=== PATIENT | female | born 1985 ===

== ENCOUNTER 2016-06-30 12:40 | Emergency (ER) | payer MEDICAID ==
[2016-06-30 13:25] VITALS: BMI 29.0
[2016-06-30] MEDS ORDERED: Lactated Ringer's 1,000 ML IV SCH (13:30)
--- NOTE | 2016-06-30 16:12 | US ---
Transvaginal pelvic ultrasound Indication: Please measure cervical length Comparison: 1st trimester ultrasound performed 01/16/16 Technique: Real-time ultrasound was performed through the pelvis. Findings: Cervix length measures approximately 3.4 cm. There is a single living fetus in cephalic presentation. Anterior placenta. There are no adnexal masses or cysts evident. Measurements and calculations: Fetus has a composite sonographic age of 30 weeks 1 day. This calculation is based on the biparietal diameter, head circumference, abdominal circumference, and femur length. Estimated heart rate 122 beats per min. Please note that the femur appears somewhat bowed on a single provided view. While this may be artifactual, dedicated outpatient anatomic ultrasound is recommended for further evaluation. Impression: Single living fetus with a composite sonographic age of 30 weeks 1 day. Estimated heart rate 122 beats per min. Cervix length measures approximately 3.4 cm. Please note that the femur appears somewhat bowed on a single provided view. While this may be artifactual, dedicated outpatient anatomic ultrasound is recommended for further evaluation.
== END 2016-06-30 16:50 | disposition home or self-care (01) ==
LOC: H.EROB2 12:40
DX: O47.03 False labor before 37 completed weeks of gestation, third trimester (principal); Z3A.30 30 weeks gestation of pregnancy

== ENCOUNTER 2016-07-09 11:50 | Emergency (ER) | payer MEDICAID ==
--- NOTE | 2016-07-09 12:28 | OBHP ---
Datetime: 06/30/2016 13:41 IP Adm Impression: , intrauterine IP Admit Plan: Observation/Evaluation Admit Comment, IP Provider: 30 yr at 30 wks GA by LMP presents to [facility] with complaint of con tractions q10 min since last night after she had sexual intercourse with her . Patient reports she has been feeling lower pelvic pressure and intermittent pain for 1 week. Denies RUQ pain, headac hes, swelling of hands/feet or visual changes. At her last clinic visit she was diagnosed with GDM cl ass A1. She denies any other complications with this . She walks 8hrs daily at work and does not have adequate fluid intake. Patient has no concerns or complaints at this time. course/ care: GDM class A1, Hep B neg, HIV neg, Gc/Ch neg/neg, RPR neg, GBS neg, Rubella Immune, PPD positive, CXR negative, Tdap given PMHx: none SurgHx: x 1 SocHx: denies smoking/Etoh/drugs Meds: PNV Allergies: NKDA PE: Cardiac: S1 S2 normal, no m/r/g Lungs: normal breathing pattern, CTABL Abd: BS+, gravid, soft, NT Ext: no edemal SVE: cervix closed Monitoring: FHR 140 bpm, moderate variability 6-25 bpm, accelerations 15 x 15, Category I A: 30 yr old F at 30 wks GA, not in active labor P: -Transvaginal US for cervical length measurement -IV , 1L LR bolus - monitoring Chanell Naylor M.D. PGY1 Addendum: I saw on exam patient presentation. Patient observed at OB ED. Cervical length within normal limit s. No evidence of labor at this time. Both maternal well-being and well-being reassurin g at this time. Patient discharged home with labor precautions. Patient will follow up in [facility] as already scheduled. [place] Pelvic Type - PN: Adequate Extremities - PN: Normal Abdomen - PN: Normal Back - PN: Normal Lungs - PN: Normal Heart - PN: Normal Thyroid - PN: Normal Neurologic - PN: Normal HEENT - PN: Normal General - PN: Normal Presentation-Admit: Vertex FHR - Baseline A Provider: 140 Contraction Comments Provider: occasional Gestation - Est Wks by US: 30.0 Pool Provider: Negative EGA AdmitDate IP: 30.0 Vital Signs Provider: Reviewed; Within Normal Limits IP Chief Complaint: Uterine contractions NICHD Variability Prov Fetus A: Moderate 6-25bpm NICHD Accel Fetus A IP Provider: 15X15 FHR Category Provider Fetus A: Category I NICHD Decel Fetus A IP Provider: None Dilatation, Provider: 0 Effacement, Provider: 0 Station, Provider: -4 Genitourinary Exam: Normal DTRs - PN: Normal
[2016-07-09 12:39] VITALS: BMI 28.7
--- NOTE | 2016-07-09 13:21 | OBADHP ---
Datetime: 07/09/2016 12:52 Admit Comment, IP Provider: 30 yr at 30 wks GA by LMP presents to [facility] with complints of hannah ght red blood noted after voiding when she wiped. Denies crmping, coitus since last visit ot [facility] 9 days go, pprom ctxs, RUQ pain, headaches, swelling of hands/feet or visual changes. At her last clini c visit she was diagnosed with GDM class A1. She states her glucose is well controlled by her diet. +UTI early in preg. She works at [employer] and walks throughout time at work. course/ care: GDM class A1, Hep B neg, HIV neg, Gc/Ch neg/neg, RPR neg, GBS neg, Rubella Immune, PPD positive, CXR negative, Tdap given PMHx: none SurgHx: x 1 SocHx: denies smoking/Etoh/drugs Meds: PNV Allergies: pcn rash I: 31.2wk UTI P: u/a, c_s obtain pren records Pelvic Type - PN: Adequate Extremities - PN: Normal Abdomen - PN: Normal Back - PN: Normal Lungs - PN: Normal Heart - PN: Normal Neurologic - PN: Normal HEENT - PN: Normal General - PN: Normal FHR - Baseline A Provider: 120 Membranes, Provider: Intact Contraction Comments Provider: irreg Comments, ACOG Physical Exam: SSE: cl/th; scant white d/c per cer os; blood in vag/per cer os. Vital Signs Provider: Within Normal Limits IP Chief Complaint: Vaginal bleeding NICHD Variability Prov Fetus A: Moderate 6-25bpm NICHD Accel Fetus A IP Provider: 15X15 FHR Category Provider Fetus A: Category I NICHD Decel Fetus A IP Provider: None Dilatation, Provider: 0 Effacement, Provider: 0 Station, Provider: -3 Genitourinary Exam: Normal EGA AdmitDate IP: 31.2 IP Adm Impression: , intrauterine IP Admit Plan: Observation/Evaluation Datetime: 06/30/2016 13:41 Thyroid - PN: Normal Presentation-Admit: Vertex Gestation - Est Wks by US: 30.0 Pool Provider: Negative DTRs - PN: Normal
[2016-07-09 14:27] LABS: RBC URINE 1 /hpf (0-3); URINE BILIRUBIN NEGATIVE (NEGATIVE); URINE BLOOD NEGATIVE (NEGATIVE); URINE COLOR YELLOW (YELLOW); URINE GLUCOSE (UA) NEG (Normal); URINE KETONE TRACE mg/dL (NEGATIVE); URINE LEUKOCYTE ESTERASE NEG Leu/uL (Negative); URINE PROTEIN NEGATIVE (NEGATIVE); URINE UROBILINOGEN 0.2-1.0 mg/dL (0.2-1.0); WBC URINE 2 /hpf (0-5)
--- NOTE | 2016-07-09 16:20 | US ---
PROCEDURE: OB Pelvic Ultrasound HISTORY: 31 weeks IUP vaginal bleeding - placenta location COMPARISON: None available. FINDINGS: UTERUS: Single Live intrauterine gestation in cephalic presentation. BPD equivalent to 30 wks/ 6 days gestatioin HC equivalent to 31 wks/ 1day gestation AC equivalent to 31 weeks and 2 days FL equivalent to 30 weeks and 2 days age (Ultrasound estimated): 30 weeks and 6 days Date of delivery (Ultrasound estimated) : 09/11/2016 Heart rate: 134 bpm. Amisha-gestational hemorrhage: None. Placenta is anterior. CERVIX: Long and closed. No cervical abnormality seen. RIGHT OVARY: Not visualized. LEFT OVARY: Not visualized. FREE FLUID: None. OTHER FINDINGS: None. IMPRESSION: Single intrauterine fetus in cephalic presentation with mean gestational age of 30 weeks and 6 days. [place] by ultrasound is 09/11/2016. Placenta is anterior in location. The cervix is closed.
--- NOTE | 2016-07-09 16:22 | US ---
PROCEDURE: Limited OB ultrasound for cervical length HISTORY: cervical length COMPARISON: None available. TECHNIQUE: Transvaginal pelvic ultrasound was performed. FINDINGS: The cervix is elongated and closed. Cervical length is 4.2 cm PIC IMPRESSION: Cervical length is 4.2 cm. Cervix is elongated and closed.
--- NOTE | 2016-07-09 17:41 | OBHP ---
Datetime: 07/09/2016 12:52 IP Adm Impression: , intrauterine IP Admit Plan: Observation/Evaluation Admit Comment, IP Provider: 30 yr EDc 09/08 by lmp _ 12wk usat 30 wks GA by LMP presents to [facility] with complints of bright red blood noted after voiding when she wiped. Denies crmping, coitus s dave last visit ot [facility] 9days go, pprom ctxs, RUQ pain, headaches, swelling of hands/feet or visual c hanges. At her last clinic visit she was diagnosed with GDM class A1. She states her glucose is well controlled by her diet. +UTI early in preg. course/ care: GDM class A1, Hep B neg, HIV neg, Gc/Ch neg/neg, RPR neg, GBS neg, Rubella Immune, PPD positive, CXR negative, Tdap given A+ PMHx: none SurgHx: x 1; D_C SocHx: denies smoking/Etoh/drugs. She works at [employer] and walks throughout time at work. Meds: PNV Allergies: pcn rash I: 31.2wk vaginal blood noted when wiped in br P: u/a, c_s obtain pren records addendum: obus anter plac- no evid of bleeding; s c/w dates CerL 4.2cm; u/a neg p: d/c home. pelvic rest. ptl precautions. return to hospital with recurrent bleeding f/u this wk in clinic. Pelvic Type - PN: Adequate Extremities - PN: Normal Abdomen - PN: Normal Back - PN: Normal Lungs - PN: Normal Heart - PN: Normal Neurologic - PN: Normal HEENT - PN: Normal General - PN: Normal FHR - Baseline A Provider: 120 Membranes, Provider: Intact Contraction Comments Provider: irreg Comments, ACOG Physical Exam: SSE: cl/th; scant white d/c per cer os; blood in vag/per cer os. EGA AdmitDate IP: 31.2 Vital Signs Provider: Within Normal Limits IP Chief Complaint: Vaginal bleeding NICHD Variability Prov Fetus A: Moderate 6-25bpm NICHD Accel Fetus A IP Provider: 15X15 FHR Category Provider Fetus A: Category I NICHD Decel Fetus A IP Provider: None Dilatation, Provider: 0 Effacement, Provider: 0 Station, Provider: -3 Genitourinary Exam: Normal
== END 2016-07-09 17:46 | disposition home or self-care (01) ==
LOC: H.EROB2 11:50 → H.L&D 12:17 → H.EROB2 17:46
DX: O26.853 Spotting complicating pregnancy, third trimester (principal); Z3A.31 31 weeks gestation of pregnancy; Z87.59 Personal history of other complications of pregnancy, childbirth and the puerperium

== ENCOUNTER 2016-08-03 04:34 | Inpatient (IN) | payer MEDICAID ==
[2016-08-03 05:34] VITALS: BMI 29.8
[2016-08-03] MEDS: Lactated Ringer's 2,000 ML IV SCH ×2 (05:45→06:57)
[2016-08-03 06:22] LABS: BASO % 0.2 % (0.0-2.0); EOS # 0.2 K/uL (0.0-0.7); EOS % 1.4 % (0.0-4.0); HEMATOCRIT 43.7 % (34.0-47.0); LYMPH # 2.1 K/uL (1.0-4.3); LYMPH % 14.3 % (20.0-40.0); MEAN CELL VOLUME 90.7 fl (81.0-99.0); MEAN CORPUSCULAR HEMOGLOBIN 29.9 pg (27.0-31.0); MEAN PLATELET VOLUME 10.9 fl (7.2-11.7); MONO # 1.1 K/uL (0.0-0.8); MONO % 7.8 % (0.0-10.0); NEUT # 11.1 K/uL (1.8-7.0); NEUT % 76.3 % (50.0-75.0); RED CELL DISTRIBUTION WIDTH 13.5 % (11.5-14.5); WHITE BLOOD COUNT 14.5 K/uL (4.8-10.8)
[2016-08-03 06:23] LABS: RBC URINE < 1 /hpf (0-3); URINE BACTERIA RARE (<OCC); URINE BILIRUBIN NEGATIVE (NEGATIVE); URINE BLOOD NEGATIVE (NEGATIVE); URINE COLOR YELLOW (YELLOW); URINE GLUCOSE (UA) NEG (Normal); URINE KETONE NEGATIVE (NEGATIVE); URINE LEUKOCYTE ESTERASE NEG Leu/uL (Negative); URINE PROTEIN NEGATIVE (NEGATIVE); URINE UROBILINOGEN 0.2-1.0 mg/dL (0.2-1.0); WBC URINE 2 /hpf (0-5)
--- NOTE | 2016-08-03 08:41 | OBHP ---
Datetime: 08/03/2016 05:00 IP Adm Impression: , intrauterine IP Chief Complaint Other: mucus plug fell IP Admit Plan: Observation/Evaluation Admit Comment, IP Provider: 30 y/o @ 34.6 weeks IUP presents for mucus plug falling. Patiet n reports mucus plug fell @ 04:00. The patient reports x1 episode of non-bloody/non-bilious vomit ye afternoon. The patient reports positive movement and taking PNVs. The patient has GDM A1, diet-controlled. The patient denies VB, LOF, CTXs, headaches, chest pain, SOB, dysuria, and fe vers. Clinic: [facility] allergies: penicillin PMH: none PSH: 2008, D_C 2012 OBHx: x 1 SAB @ 6 weeks 2012, 2012 for arrest of labor SOC: denies smoking, alcohol, and drugs ABO-Rh: A+ anitbody: neg HIV: neg RPR: neg HBsAg: neg rubella: immune GC/C: neg PPD: POSITIVE, CXR neg TDAP: 06/24/2016 O: CV: RRR Resp: CTA bl A: 30 y/o @ 34.6 weeks IUP presents for falling of mucus plug P: observe and evaluate continuous monitoring Klever Garibay MD Fire Control Officer Discussed plan of care of maternal medicine will start magnesium sulfate administer steroids if patient starts to make cervical changes patient to be delivered FHR - Baseline A Provider: 140 Membranes, Provider: Intact IP Hx Assessment: The History has been Reviewed and is Current EGA AdmitDate IP: 34.6 Vital Signs Provider: Reviewed; Within Normal Limits IP Chief Complaint: Other NICHD Variability Prov Fetus A: Moderate 6-25bpm NICHD Accel Fetus A IP Provider: 15X15 FHR Category Provider Fetus A: Category I NICHD Decel Fetus A IP Provider: None
[2016-08-03] MEDS ORDERED: Magnesium Sul 40GM/1L SW 40 GM/1,000 ML ML IV ONE ×2 (08:48→10:35)
[2016-08-03] MEDS ORDERED: Betamethasone Soluspan 30 mg/5mL Inj Susp IM ONE (08:50)
[2016-08-03] MEDS ORDERED: Magnesium Sulfate 4 gm/100 ml 4 GM/100 ML BAG IVPB ONE ×3 (09:03→09:33)
[2016-08-03] MEDS: Lactated Ringer's 1,000 ML IV SCH ×2 (09:15→22:15)
[2016-08-03] MEDS ORDERED: Nalbuphine 20 mg/ml Inj (1 ml) IVP PRN (11:44)
--- NOTE | 2016-08-03 12:26 | OBPN ---
Datetime: 08/03/2016 11:22 Membranes, Provider: Intact Contraction Comments Provider: q4-7min Presentation-Admit: Vertex IP Progress Note Comment: OBH Note s: pt c/o bilateral back pain- intermitttent feels like ctxs, rated 10/10; denies srom, vag bleedi ng..states no coitus for >1wk o: back: bilateral cva tenderness humc ob us on 07/09- s c/w dates ega by us 30.6kw by dates 31wk mfm us I: Threatened labor 34.6wks Prior CD Desired Sterility P: On MgSO4. Check Mg Level repeat us Pt advised that if she has ptd should be smaller and may be able to havd a . she state s she desires REPEAT CD. Pt also request sterilization. Informed consent obtained for repeat cd and btl NICHD Accel Fetus A IP Provider: 15X15 FHR Category Provider Fetus A: Category I NICHD Variability Prov Fetus A: Moderate 6-25bpm NICHD Decel Fetus A IP Provider: None Datetime: 08/03/2016 05:00 FHR - Baseline A Provider: 140 Vital Signs Provider: Reviewed; Within Normal Limits Datetime: 07/09/2016 12:52 Dilatation, Provider: 0 Effacement, Provider: 0 Station, Provider: -3 Datetime: 06/30/2016 13:41 Pool Provider: Negative Gestation - Est Wks by US: 30.0
[2016-08-03 12:54] LABS: URINE BACTERIA RARE (<OCC); URINE BILIRUBIN NEGATIVE (NEGATIVE); URINE BLOOD NEGATIVE (NEGATIVE); URINE COLOR YELLOW (YELLOW); URINE GLUCOSE (UA) NEG (Normal); URINE KETONE TRACE mg/dL (NEGATIVE); URINE LEUKOCYTE ESTERASE NEG Leu/uL (Negative); URINE PROTEIN NEGATIVE (NEGATIVE); URINE UROBILINOGEN 0.2-1.0 mg/dL (0.2-1.0); WBC URINE < 1 /hpf (0-5)
--- NOTE | 2016-08-03 16:02 | US ---
PROCEDURE: OB Pelvic Ultrasound HISTORY: PTL-efw, cerv length, jessica, plac locat, fetl presen COMPARISON: None available. FINDINGS: UTERUS: Gestational sac: Single intrauterine gestation in cephalic presentation. Placenta is anteriorly located free of the cervical os. The. BPD: 8.64 cm = 34 weeks 6 days HC: 31.24 cm = 35 weeks 0 days AC: 30.99 cm = 35 weeks 0 days FL: = 6.77 cm = 34 weeks 6 days Average ultrasound age estimated approximately 35 weeks 0 days Heart rate: 131 bpm. Amisha-gestational hemorrhage: None. Date of delivery (Ultrasound estimated) : 09/07/2016 JESSICA = 11.6 cm CERVIX: Cervix appears closed measuring approximately 4.2 cm the. No cervical abnormality seen. RIGHT OVARY: Not visualized LEFT OVARY: Not visualized the the FREE FLUID: None. OTHER FINDINGS: None. IMPRESSION: Living intrauterine gestation in cephalic presentation estimated age ultrasound age 35 weeks 0 days the +/-2 weeks 3 days. Heart rate document at 131 BPM Placenta is anteriorly located free of the cervical os. The cervix closed. JESSICA = 11.6 cm =
--- NOTE | 2016-08-03 22:32 | OBPN ---
Datetime: 08/03/2016 22:27 IP Progress Impression Other: Threatened PTL IP Progress Plan: Continue present management Contraction Comments Provider: irregular FHR - Baseline A Provider: 120 IP Progress Note Comment: s: states abd pain has subsided. denies srom. no c/o i: 34.6wk threatened ptl p: continu mgso4 for betameth#2 tomorrow. NICHD Accel Fetus A IP Provider: 15X15 FHR Category Provider Fetus A: Category I NICHD Variability Prov Fetus A: Moderate 6-25bpm Dilatation, Provider: 0 Effacement, Provider: 60 Station, Provider: -3 NICHD Decel Fetus A IP Provider: None
[2016-08-04] MEDS ORDERED: Magnesium Sul 40GM/1L SW 40 GM/1,000 ML ML IV ONE (06:57)
[2016-08-04] MEDS ORDERED: Betamethasone Soluspan 30 mg/5mL Inj Susp IM ONE (10:00)
--- NOTE | 2016-08-04 10:29 | OBPN ---
Datetime: 08/04/2016 10:03 IP Progress Impression: Reactive non-stress test IP Progress Plan: Discharge Pool Provider: Negative FHR - Baseline A Provider: 144 Gestation - Est Wks by US: 36.0 IP Progress Note Comment: Patient doing well denies any abdominal pain and uterine contractions vagi nal bleeding or leakage of fluid. The patient reports good movement. Vital signs stable afebrile Vaginal exam cervix long closed posterior Extremities no Homans Intrauterine at 36 weeks Patient received steroids We'll discharge home Patient to follow up with the [facility] this week labor precautions provided Vital Signs Provider: Reviewed NICHD Accel Fetus A IP Provider: 10X10 NICHD Variability Prov Fetus A: Moderate 6-25bpm NICHD Decel Fetus A IP Provider: None
== END 2016-08-04 11:15 | disposition home or self-care (01) | DRG 886 ==
LOC: H.EROB2 04:34 → H.L&D 08:47
PROVIDERS: ADMIT Obstetrics & Gynecology Gynecology; ATTEND Obstetrics & Gynecology Gynecology
PROC: 4A1HXCZ Monitoring of Products of Conception, Cardiac Rate, External Approach (ICD-10-PCS; principal; 2016-08-03)
DX: O26.93 Pregnancy related conditions, unspecified, third trimester (principal); O24.410 Gestational diabetes mellitus in pregnancy, diet controlled; Z3A.34 34 weeks gestation of pregnancy

== ENCOUNTER 2016-08-19 04:19 | Inpatient (IN) | payer MEDICAID ==
[2016-08-19 05:07] VITALS: BMI 27.3
[2016-08-19] MEDS: Lactated Ringer's 1,000 ML IV SCH ×3 (05:44→20:32)
--- NOTE | 2016-08-19 06:56 | OBHP ---
Datetime: 08/19/2016 05:30 IP Adm Impression: Term, intrauterine ; No Active Labor; Intact Membranes IP Admit Plan: Observation/Evaluation Admit Comment, IP Provider: 29yo IUP 37w c/o CTX pain since last nigth. No SROM. No VB +FM PNC: [facility] Dr Reed chart rev'd : GDMA1; GBS+; PPD+ POBGYNH: C/S x 1 [place] U; Spont Ab x 1 PMSH: C/S x 1 NKA PSoH: denies smoking ETOH drugs A: IUP at 37w C/S x 1 undocumented GBS+ PLAN: Terbutaline x 1 dose IVF Observe for labor progress Condition explained to pt and her . They understood. Pelvic Type - PN: Adequate Extremities - PN: Normal Abdomen - PN: Normal Back - PN: Normal Breast - PN: Not Done Lungs - PN: Normal Heart - PN: Normal Thyroid - PN: Normal Neurologic - PN: Normal HEENT - PN: Normal General - PN: Normal Presentation-Admit: Vertex FHR - Baseline A Provider: 140 Membranes, Provider: Intact Contraction Comments Provider: 2-3 Comments, ACOG Physical Exam: ROS: general: no fatigue/no weakness HEENT: slight MARTINEZ; no visual dist CV: No CP; No palpitations Resp: no SOB; no cough GI: No N/V/D : no F/U/D MS: no joint pain Pool Provider: Negative IP Hx Assessment: The History has been Reviewed and is Current Vital Signs Provider: Reviewed; Within Normal Limits NICHD Variability Prov Fetus A: Moderate 6-25bpm NICHD Accel Fetus A IP Provider: 10X10 FHR Category Provider Fetus A: Category I NICHD Decel Fetus A IP Provider: None Dilatation, Provider: 1 Effacement, Provider: long Station, Provider: high Genitourinary Exam: Normal DTRs - PN: Normal Datetime: 08/04/2016 10:03 Gestation - Est Wks by US: 36.0 Datetime: 08/03/2016 05:00 EGA AdmitDate IP: 34.6
[2016-08-19 07:23] LABS: HEMOGLOBIN 14.2 g/dL (12.0-16.0); MEAN CELL VOLUME 90.1 fl (81.0-99.0); MEAN CORPUSCULAR HEMOGLOBIN 30.6 pg (27.0-31.0); RBC 4.65 Mil/uL (3.80-5.20); RED CELL DISTRIBUTION WIDTH 13.8 % (11.5-14.5); WHITE BLOOD COUNT 11.4 K/uL (4.8-10.8)
[2016-08-19] MEDS ORDERED: Oxytocin 30 units/LR 500ML 30 U/500 ML BAG IV ONE (07:44)
[2016-08-19 07:48] VITALS: BP 98/58; PULSE 90; RESP 17; TEMP 98.4; O2SAT 100
--- NOTE | 2016-08-19 07:49 | OBADHP ---
Datetime: 08/19/2016 07:30 Admit Comment, IP Provider: 29yo IUP 37w c/o CTX pain since last nigth. No SROM. No VB +FM...Her CTX stopped but now notified nurses that pain is coming back PNC: [facility] Dr Reed chart rev'd : GDMA1; GBS+; PPD+ POBGYNH: C/S x 1 [place] U; Spont Ab x 1 PMSH: C/S x 1 NKA PSoH: denies smoking ETOH drugs A: IUP at 37w C/S x 1 undocumented GBS+ PLAN: S/P Terbutaline x 1 dose...will admit to L_D...Pt declines ...prep for C/S Condition explained to pt and her . They understood. Extremities - PN: Normal Lungs - PN: Normal Heart - PN: Normal Neurologic - PN: Normal General - PN: Normal FHR - Baseline A Provider: 140 Membranes, Provider: Intact Pool Provider: Negative IP Hx Assessment: The History has been Reviewed and is Current Vital Signs Provider: Reviewed; Within Normal Limits IP Chief Complaint: Uterine contractions NICHD Variability Prov Fetus A: Moderate 6-25bpm NICHD Accel Fetus A IP Provider: 15X15 FHR Category Provider Fetus A: Category I NICHD Decel Fetus A IP Provider: None Dilatation, Provider: 1-2 Effacement, Provider: 50 Station, Provider: -2 EGA AdmitDate IP: 37.1 IP Adm Impression: Term, intrauterine ; Active labor IP Admit Plan: Admit to unit; Initiate Section protocol Datetime: 08/19/2016 05:30 Pelvic Type - PN: Adequate Abdomen - PN: Normal Back - PN: Normal Breast - PN: Not Done Thyroid - PN: Normal HEENT - PN: Normal Presentation-Admit: Vertex Contraction Comments Provider: 2-3 Comments, ACOG Physical Exam: ROS: general: no fatigue/no weakness HEENT: slight MARTINEZ; no visual dist CV: No CP; No palpitations Resp: no SOB; no cough GI: No N/V/D : no F/U/D MS: no joint pain Genitourinary Exam: Normal DTRs - PN: Normal Datetime: 08/04/2016 10:03 Gestation - Est Wks by US: 36.0 Datetime: 08/03/2016 05:00 IP Chief Complaint Other: mucus plug fell
[2016-08-19] MEDS ORDERED: Clindamycin 600 MG in Sodium Chloride 0.9% 100 ML IVPB ONE (08:00)
[2016-08-19] MEDS ORDERED: Sodium Chloride 0.9% 10 ML IV ONE (08:23)
[2016-08-19] MEDS ORDERED: Morphine 1 mg/ml preservative-free Inj(Duramorph) ONE (08:23)
[2016-08-19] MEDS ORDERED: ePHEDrine 50 mg/ml Inj ONE (08:23)
[2016-08-19] MEDS ORDERED: Phenylephrine 10 mg/ml Inj ONE (08:23)
[2016-08-19] MEDS ORDERED: Lactated Ringer's 1,000 ML IV SCH ×2 (08:30→13:00)
[2016-08-19] MEDS ORDERED: DiphenhydrAMINE 50 mg/ml Inj IVP PRN (10:14)
[2016-08-19] MEDS ORDERED: Oxycodone/Acetaminophen 5/325 mg Tab PO PRN ×2 (10:14→15:35)
[2016-08-19 10:17] LABS: ABG ALLEN TEST YES; ARTERIAL BLOOD GAS HCO3 20.1 mmol/L (21-28); ARTERIAL BLOOD GAS HEMOGLOBIN 17.2 g/dL (11.7-17.4); ARTERIAL BLOOD GAS O2 CAPACITY 23.3 mL/dL (16-24); ARTERIAL BLOOD GAS O2 CONTENT 10.3 ML/dL (15-23); ARTERIAL BLOOD GAS O2 SAT 44.2 % (95-98); ARTERIAL BLOOD GAS PCO2 58 mm/Hg (35-45); ARTERIAL BLOOD GAS PH 7.24 (7.35-7.45); ARTERIAL BLOOD GAS PO2 19 mm/Hg (80-100); ARTERIAL BLOOD GAS TCO2 26.7 mmol/L (22-28)
[2016-08-19] MEDS ORDERED: Ketamine 50 mg/ml Inj (10 ml) ONE (11:33)
[2016-08-19] MEDS ORDERED: Midazolam 2 MG/2 ML VIAL ONE ×2 (11:33→11:41)
[2016-08-19] MEDS ORDERED: Propofol 10 mg/ml Inj (20 ML) ONE (12:19)
[2016-08-19 14:41] LABS: HEMOGLOBIN 11.6 g/dL (12.0-16.0)
[2016-08-19] MEDS: Clindamycin 600 MG in Sodium Chloride 0.9% 100 ML IVPB SCH (18:12)
--- NOTE | 2016-08-19 19:29 | OBDS ---
DELIVERY PERSONNEL Delivery Doctor: Eldon Hameed MD Container Crane Operator: Marivel Humphrey RN, Shanda Birmingham RN. Anesthesiologist: Arpita Brown MD Resident: Mary Reed MATERNAL INFORMATION Delivery Anesthesia: Spinal Medications in Delivery: pitocin 30units/500ml lr Estimated Blood Loss (ml): 900 Placenta Cultured: No Maternal Complications: None Provider Comments: Pre-Op Dx: 37.1wk , , Labor, Desired Sterilization Post-Op Dx: 37.1wk, , Labor, Desired Sterilization Procedure: Repeat with BTL Surgeon _ Fender Mechanic(s): Dr Dailey, 1st- Dr Reed, 2nd- Dr Jiang Anesthesia: Spinal, Dr Brown EBL: 900mL Findings: Male baby in vertex position, 3280g, 9/9, normal uterus with fallopian tubes/ovari es within normal limits. Complications: None Condition: Patient tolerated procedure well, transferred to L_D for recovery in stable condition. to [facility]. Patholog: RIGHT and LEFT fallopian tubes Mary Reed MDRES orossetos dictated 1412 LABOR SUMMARY EDC: 09/08/2016 00:00 No. Babies in Womb: 1 Attempted: No Labor Anesthesia: Epidural LABOR INFORMATION Reason for Induction: Not Applicable Oxytocin: N/A Group B Beta Strep: Positive Antibiotics # of Doses: 1 Antibiotics Time of Last Dose: 1000 Steroids Given: None Reason Steroids Not Administered: Not Applicable MEMBRANES Membranes Rupture Method: Artificial Rupture of Membranes: 08/19/2016 09:59 Length of Rupture (hrs): 0.00 Amniotic Fluid Color: Clear Amniotic Fluid Amount: Small Amniotic Fluid Odor: Normal STAGES OF LABOR Stage 3 hrs: 0 Stage 3 min: 1 CSECTION DELIVERY Primary Indication: Repeat Elective CSection Urgency: Non Elective CSection Incidence: Repeat Labor: Labor Elective: Nonelective CSection Incision: Lower Uterine Transverse; T Extension of Incision Uterine Closure: Double-layer closure BABY A INFORMATION Delivery Date/Time: 08/19/2016 09:59 Method of Delivery: Born in Route : No : N/A Forceps: N/A Vacuum Extraction: N/A Shoulder Dystocia : No SHOULDER DYSTOCIA BABY A Delivery Date/Time: 08/19/2016 09:59 PRESENTATION/POSITION BABY A Presentation: Cephalic Cephalic Presentation: Vertex Breech Presentation: N/A PLACENTA INFORMATION BABY A Placenta Delivery Time : 08/19/2016 10:00 Placenta Method of Delivery: Manual Removal Placenta Status: Delivered SCORES BABY A Heart Rate 1 min: >100 bpm Resp Effort 1 min: Good Cry Reflex Irritability 1 min: Cough or Sneeze or Pulls Away Muscle Tone 1 min: Active Motion Color 1 min: Body [place], Extremities Blue Resuscitation Effort 1 min: N/A SCORE 1 MIN: 9 Heart Rate 5 min: >100 bpm Resp Effort 5 min: Good Cry Reflex Irritability 5 min: Cough or Sneeze or Pulls Away Muscle Tone 5 min: Active Motion Color 5 min: Body [place], Extremities Blue Resuscitation Effort 5 min: N/A SCORE 5 MIN: 9 INFANT INFORMATION BABY A Gestational Age at Delivery: 37.1 Gestational Status: Term Infant Outcome : Liveborn Condition : Stable Sex: Male IDENTIFICATION/MEDS BABY A ID Band Number: [id number] ID Band Location: Right Leg; Right Arm WEIGHT/LENGTH BABY A Birthweight (gms): 3280 Infant Weight (lb): 7 Infant Weight (oz): 4 CORD INFORMATION BABY A No. Cord Vessels: 3 Nuchal Cord : N/A Nuchal Cord Other: N/A True Knot: N/A Cord pH Baby Arterial: 7.24 Cord Blood Taken: Yes Banking/Donate Info: N/A Infant Suction: Mouth; Nose
[2016-08-20] MEDS: Clindamycin 600 MG in Sodium Chloride 0.9% 100 ML IVPB SCH ×3 (01:14→16:26)
[2016-08-20] MEDS: Oxycodone/Acetaminophen 5/325 mg Tab PO PRN ×2 (04:24→22:49)
[2016-08-20] MEDS: Lactated Ringer's 1,000 ML IV SCH ×2 (05:43→12:30)
[2016-08-20 07:12] LABS: BASO % 0.2 % (0.0-2.0); EOS % 0.2 % (0.0-4.0); HEMOGLOBIN 9.1 g/dL (12.0-16.0); LYMPH # 1.3 K/uL (1.0-4.3); LYMPH % 8.6 % (20.0-40.0); MEAN CELL VOLUME 90.9 fl (81.0-99.0); MEAN CORPUSCULAR HEMOGLOBIN 30.3 pg (27.0-31.0); MEAN CORPUSCULAR HGB CONC 33.3 g/dL (33.0-37.0); MEAN PLATELET VOLUME 11.3 fl (7.2-11.7); MONO # 1.2 K/uL (0.0-0.8); MONO % 7.9 % (0.0-10.0); NEUT # 12.8 K/uL (1.8-7.0); NEUT % 83.1 % (50.0-75.0); PLATELET COUNT 113 K/uL (130-400); RED CELL DISTRIBUTION WIDTH 13.9 % (11.5-14.5); WHITE BLOOD COUNT 15.4 K/uL (4.8-10.8)
[2016-08-20 12:51] LABS: BANDS 1 % (0-2); BASOPHIL 1 % (0-2); LYMPHOCYTE 5 % (20-50); MONOCYTE 9 % (0-10); NEUTROPHIL 83 % (42-75); PLATELET ESTIMATE DECREASED (NORMAL); REACTIVE LYMPHOCYTES 1 % (0-0); TOTAL CELLS COUNTED 100
[2016-08-20 12:52] LABS: HYPOCHROMIC SLIGHT; LARGE PLATELETS PRESENT
--- NOTE | 2016-08-20 17:35 | OBPPN ---
Datetime: 08/20/2016 05:40 PP Nausea Prov: Denies PP Flatus Prov: No PP BM Prov: No PP Heart Prov: Normal PP Lungs Prov: Normal PP Abdomen/Uterus Prov: Normal PP Extremities Prov: Normal PP C/S Incision Prov: Normal PP Comments Phys Exam Prov: Incision: clean, dry and intact. no induration, erythema or fluctuation. PP Impression Prov: Normal progression PP Plan Prov: Continue present management PP Progress Note Prov: 30 y/o seen and examined at bedside. Pt reports right arm pain and ri ght hand since yesterday after . reports pain is worse(5/10) on 2nd, 3rd and 4th digits of r ight hand w/ mild swelling. has hx right elbow tendinitis for 2.5 yrs. reports pain improves with med s. denies passing gas per rectum and no BM. denies dyspnea, CP, palpitation, nausea, vomiting, fever , chills or calf pain. parents do not desire circumcision for infant. assessement: 30 yo s/p , POD#1 right hand pain plan: advance to regular diet as tolerated discontinue [place] percocet and ibuprofen for pain management Encourage and ambulatory Anticipate discharge on 08/22/16 Sultan Patel, PGY1 OB Hospitalist on-call - On rounds, I saw and examined Maria E...agree with PGY1 note...cont post op care. CAMINDO Vital Signs Provider PP: Reviewed Vital Signs Provider Details PP: slight tachycardia Datetime: 08/19/2016 17:02 PP Pain Prov: Abnormal PP CVA Tenderness Prov: Normal IP PP Procedures: None
[2016-08-21] MEDS: Oxycodone/Acetaminophen 5/325 mg Tab PO PRN (08:49)
--- NOTE | 2016-08-21 09:38 | OBPPN ---
Datetime: 08/21/2016 05:46 PP Pain Prov: Within normal limits PP Nausea Prov: Denies PP Flatus Prov: Yes PP BM Prov: Yes PP Heart Prov: Normal PP Lungs Prov: Normal PP Abdomen/Uterus Prov: Normal PP CVA Tenderness Prov: Normal PP Extremities Prov: Normal PP C/S Incision Prov: Normal PP Comments Phys Exam Prov: Incision: clean, dry and intact. no induration, erythema or fluctuation. Intact steri strips. no dehiscence. PP Impression Prov: Normal progression PP Plan Prov: Continue present management PP Progress Note Prov: 30 y/o seen and examined at bedside. pt reports no more right hand/ar m pain. Reports incision pain improves with meds. Ambulating well w/o dizziness. Tolerating PO diet well. Voiding freely w/ no blood noted. Reports passing gas per rectum and had + BM. denies dyspnea , CP, palpitation, nausea, vomiting, fever, chills or calf pain. assessement: 30 yo s/p , POD#2 plan: Continue with GDM specific diet as tolerated percocet and ibuprofen for pain management Encourage and ambulatory Anticipate discharge tomorrow Sultan Patel, PGY1 The patient was seen with the resident I agree with the notes Encourage ambulation, analgesia as needed, regular diet, anticipate discharge in a.m. Vital Signs Provider PP: Reviewed
--- NOTE | 2016-08-30 09:10 | OP ---
Date of Procedure: 08/19/16 Surgery Start: 9:28 Preoperative Diagnosis: 37.1 week in labor, hx of prior , elective sterilization Postoperative Diagnosis: Same Procedure was a repeat with an inverted T incision and bilateral tubal ligation. Surgeon: Myself Stripper And Printer: Dr. Mary Reed, [id number] Second Telephonic Nurse: Phoenix Jiang [id number] Anesthesiologist: Dr. Brown Anesthesia: Spinal anesthetic Estimated blood loss: 900ml Findings: Viable male infant in vertex presentation with clear amniotic fluid, weight of 3280 grams and Apgars of 9 and 9. Intraoperative findings also showed grossly normal bilateral tubes and ovaries. The uterus was otherwise grossly normal. Dense adhesions present. The bladder was densely adherent to the lower uterine segment of the uterus; adhesions of the rectus muscle to the underlying peritoneum and omentum. Complications: None Condition: Pt returned to the recovery room in a satisfactory condition, and the to the nursery. Pathology assessment: Right and left fallopian tubes. cord gas was also obtained which showed a pH of 7.24. FONTAINE CATHETER to drainage Indications: Pt is a 29-year-old female P:1011, who presented at 37 weeks with complaints of painful contractions. She presented on August 18, 2016. She was admitted for overnight observation and noted to be in active labor. Consent was obtained for a repeat with tubal sterilization. Pt declined . Pt understands that tubal sterilization is considered a permanent, irreversible procedure. Procedure: Pt was taken to the operating room where she underwent her spinal without complications. She was then placed into a supine position with a leftward tilt. She was prepped and draped in a routine sterile fashion. A pfannensteil skin incision was made at the site of the prior scar and this was carried down to the underlying rectus fascia, which was incised at the midline and extended bilaterally. The inferior rectus fascial edge was grasped with kochers and the underlying rectus muscles dissected off. The same procedure was performed along the superior rectus fascia edge. There were dense adhesions noted of the rectus muscle to the overlying rectus fascia, and adhesions of the rectus muscle to the underlying omentum was noted as well. The rectus muscle was grasped along the midline on either side with Allis clamps and the peritoneum was incised with the scalpel to enter the abdominal cavity. Upon entry, as stated, adhesions were noted of the omentum to the overling rectus muscle, and this required lysis of adhesions to gain entrance to the abdomen. The abdominal tissue was found to be nondistensible due to the scarring of prior , and the rectus muscle was incised to create more space in the abdomen. A portion of the omentum adherence was clamped with a [place] x2, incised and ligated. Upon entry into abdominopelvic cavity, the bladder was noted to be high up, and densely adherent to the lower uterine segment. A bladder flap was created using sharp dissection, however the bladder did remain adherent to the lower uterine segment. A transverse uterine incision was made superior to the area where the bladder was noted, and the uterine muscles were grasped on the other side with Allis clamps to enable further incision through the uterine muscle. The uterine cavity was then entered bluntly, and the incision extended laterally with use of the banded scissors. An attempt was made to deliver the fetus which was unsuccessful, so the uterine incision was changed to an inverted T incision. The baby was subsequently delivered. The mouth and nares were suctioned, the cord was clamped and cut, and the baby was handed to the waiting casino banker. Cord blood was collected. Placenta delivered spontaneously and intact. The uterus was exteriorized and cleared of all clots and debris. There was a small extension noted along the right lateral corner going inferiorly towards the cervix. This was repaired with 0 monocryl in a running lock fashion. Good hemostasis was obtained. The uterine incision was reapproximated. The innermost layer of the vertical portion of the uterine incision was reapproximated with 0 vicryl in a running locked fashion. The midportion of the thick myometrial layer was closed with a running stitch of 0- vicryl. The outer [id number] remaining portion of the myometrium and the uterine serosa were closed with a baseball stitch. The transverse uterine incision was reapproximated with 0 vicryl in a running locked fashion, followed by imbricated stitch of 0 monocryl. There was some bleeding noted along the transverse portion of the uterine incision, and this was managed with figure of 8 stitches to obtain good hemostasis. Attention was then turned to the fallopian tubes for ligation. The midampulary portion of the right fallopian tube was grasped with a rangel and ligated x2 with 2-0 plain. The tube incised and the tubal lumen cauterized with the Bovi. The suture came loose and required repeat ligation on either side of the cut tubes. There was some bleeded noted along peritoneum proximal to the distal portion of the cut tube, and this was well controlled with a running stitch of 3-0 chromic. Good hemostasis was obtained. Attention was then turned to the left fallopian tube which was grasped at the midambulary portion and ligated x2 with 2-0 plain. The tube was incised and the lumen cauterized for good hemostasis. The abdomen was irrigated and cleared of all clots and debris, and the uterine incision was reinspected to confirm good hemostasis. The uterus was returned to the abdomen, and the pelvic cavity was irrigated and cleared of all clots and debris. Because of the proximity of the bladder to the site of the uterine incision, it was decided to instill the bladder with sterile milk, and this was performed. It showed no leakage of fluid. The bladder was intact. The rectus fascia was reapproximated with 0 vicryl in a running fashion beginning in the left lateral corner to the midline and tied. The same procedure beginning in right lateral corner of rectus fascia was performed. The subcutaneous tissue was reapproximated with 2-0 plain in a simple interrupted fashion. The skin was reapproximated with a subcuticular of 3-0 vicryl. All sponge, lap and needle count were correct and patient returned to the recovery room in a satisfactory condition. Jerome Dailey MD
== END 2016-08-22 22:15 | disposition home or self-care (01) | DRG 371 ==
LOC: H.EROB2 04:19 → H.L&D 07:34 → H.OB/GYN 16:45
PROVIDERS: ADMIT Obstetrics & Gynecology; ATTEND Obstetrics & Gynecology
PROC: 10D00Z1 Extraction of Products of Conception, Low, Open Approach (ICD-10-PCS; principal; 2016-08-19)
PROC: 0UB70ZZ Excision of Bilateral Fallopian Tubes, Open Approach (ICD-10-PCS; 2016-08-19)
PROC: 4A1HXCZ Monitoring of Products of Conception, Cardiac Rate, External Approach (ICD-10-PCS; 2016-08-19)
DX: O34.211 Maternal care for low transverse scar from previous cesarean delivery (principal); O99.824 Streptococcus B carrier state complicating childbirth; M25.541 Pain in joints of right hand; Z3A.37 37 weeks gestation of pregnancy; Z37.0 Single live birth; Z30.2 Encounter for sterilization; Z88.0 Allergy status to penicillin